=== PATIENT | male | born 1955 | race Caucasian/White ===

== ENCOUNTER → 2019-11-19 08:39 | Outpatient (BNVA) | payer MEDICARE, MEDICAID, SELFPAY | PROVIDERS: Family Provider Nurse Practitioner Family; PCP Nurse Practitioner Family; Visit Provider Podiatrist Foot & Ankle Surgery | DX: M19.072 Primary osteoarthritis, left ankle and foot (principal) | CPT/HCPCS: 73630 ==

== ENCOUNTER → 2019-11-21 08:08 | Outpatient (BNVA) | payer MEDICARE, MEDICAID, SELFPAY | PROVIDERS: Family Provider Nurse Practitioner Family; PCP Nurse Practitioner Family; Visit Provider Nurse Practitioner Family | DX: I10 Essential (primary) hypertension (principal) | CPT/HCPCS: 80048; 80061 ==

== ENCOUNTER → 2020-04-14 14:24 | Outpatient (BNVA) | payer MEDICARE, MEDICAID, SELFPAY | PROVIDERS: Family Provider Nurse Practitioner Family; PCP Nurse Practitioner Family; Visit Provider Podiatrist Foot & Ankle Surgery | DX: G57.62 Lesion of plantar nerve, left lower limb (principal); M21.612 Bunion of left foot | CPT/HCPCS: 73630 ==

== ENCOUNTER → 2020-07-06 15:16 | Outpatient (BNVA) | payer MEDICARE, MEDICAID, SELFPAY | PROVIDERS: Family Provider Nurse Practitioner Family; PCP Nurse Practitioner Family; Visit Provider Nurse Practitioner Family | DX: R34 Anuria and oliguria (principal); R39.11 Hesitancy of micturition | CPT/HCPCS: 81000 ==

== ENCOUNTER → 2020-07-07 08:26 | Outpatient (BNVA) | payer MEDICARE, MEDICAID, SELFPAY | PROVIDERS: Family Provider Nurse Practitioner Family; PCP Nurse Practitioner Family; Visit Provider Nurse Practitioner Family | DX: R39.11 Hesitancy of micturition (principal); E78.5 Hyperlipidemia, unspecified; R35.0 Frequency of micturition | CPT/HCPCS: 80048; G0103 ==

== ENCOUNTER → 2021-04-27 09:18 | Outpatient (BNVA) | payer MEDICARE, MEDICAID, SELFPAY | PROVIDERS: Family Provider Nurse Practitioner Family; PCP Nurse Practitioner Family; Visit Provider Nurse Practitioner Family | DX: I10 Essential (primary) hypertension (principal); M25.50 Pain in unspecified joint | CPT/HCPCS: 80053; 80061; 82306 ==

== ENCOUNTER → 2021-07-18 08:40 | Outpatient (BNVA) | payer MEDICARE, MEDICAID, SELFPAY | PROVIDERS: Family Provider Nurse Practitioner Family; PCP Nurse Practitioner Family; Visit Provider Nurse Practitioner Family | DX: E78.5 Hyperlipidemia, unspecified (principal); I10 Essential (primary) hypertension | CPT/HCPCS: 80061; 80076 ==

== ENCOUNTER → 2021-08-09 09:54 | Outpatient (BNVA) | payer MEDICARE, MEDICAID, SELFPAY | PROVIDERS: Family Provider Nurse Practitioner Family; PCP Nurse Practitioner Family; Visit Provider Nurse Practitioner Family | DX: R35.0 Frequency of micturition (principal); K92.1 Melena | CPT/HCPCS: 81000 ==

== ENCOUNTER → 2021-08-16 09:31 | Outpatient (BNVA) | payer MEDICARE, MEDICAID, SELFPAY | PROVIDERS: Family Provider Nurse Practitioner Family; PCP Nurse Practitioner Family; Visit Provider Nurse Practitioner Family | DX: K92.1 Melena (principal) | CPT/HCPCS: 82272 ==

== ENCOUNTER → 2021-09-06 08:57 | Outpatient (BNVA) | payer MEDICARE, MEDICAID, SELFPAY | PROVIDERS: Family Provider Nurse Practitioner Family; PCP Nurse Practitioner Family; Visit Provider Surgery | DX: Z20.822 Contact with and (suspected) exposure to COVID-19 (principal) | CPT/HCPCS: 87635 ==

== ENCOUNTER 2021-09-09 08:32 | Day surgery (SDC) | payer MEDICARE, MEDICAID, SELFPAY ==
[2021-09-07 16:33] VITALS: BMI 29.8
--- NOTE | 2021-09-09 08:58 | ANES.PREANE2 ---
Pre-Anesthetic Assessment Pre-Anesthetic Assessment: Height/Weight: Height 1.83 m Weight 99.79 kg Preop Diagnosis: diagnostic Proposed Procedure: Operation Date: 09/09/21 09:45 Proposed Procedures p Colonoscopy 28370 K92.1(Not Applicable) - Suresh Mustafa MD Familial anesthetic complications: none Was Beta [place] taken within 24 hours: N/A Was Clonidine taken within 24 hours: N/A Last intake: > 8hrs Social: Social History: No alcohol and No tobacco Exam: Pre-Anes Outpt Exam: alert, oriented x 3, clear to auscultation bilaterally and regular rate & rhythm Airway: Cervical ROM: WNL MP: 4 (patient not opening mouth well (voluntarily)) Dentition: Partials Pulmonary: Pulmonary: Sleep apnea CV/HEM: CV/HEM: HTN Metabolic: Metabolic: Hyperlipidemia Anesthetic Plan: ASA status: 3 Anesthesia: MAC Risk of > 500 ml blood loss (7ml/kg in children): No PFSH Anesthesia PFSH: Medical History Hyperlipidemia LDL goal <100 Hypertension 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 Seizure disorder Surgical History (Updated 08/30/21 @ 11:12 by uSresh Mustafa MD) History of left inguinal hernia repair Hx of brain surgery Family History Other Diabetes Stroke Denies family history of CAD (coronary artery disease) Clotting disorder Dementia Hyperlipidemia Psychiatric illness Chronic kidney disease (CKD) Suicide Anesthesia complication Bleeding disorder Family history of premature coronary artery disease Lung disease Cancer Hypertension Social History Smoking and tobacco status: never smoked Second hand smoke exposure: No Smoking risk assessment/counseling performed?: Yes Alcohol intake: never Desire information about alcohol rehabilitation?: No Counseling given: No Desire information about substance/drug rehabilitation?: No Counseling given: No Data Anesthesia Cardiac Studies: No Data to Display
[2021-09-09 09:33] VITALS: BP 157/101; PULSE 69; RESP 18; TEMP 36.2; O2SAT 97
[2021-09-09] MEDS: sodium chloride 0.9% 1,000 ML 30 ML IV (09:45)
--- NOTE | 2021-09-09 10:41 | W.PM.OPSFHP ---
Same Day Surgery H&P Indication for Procedure/HPI DATE OF PROCEDURE: September 09, 2021 CHIEF COMPLAINT/INDICATIONFOR SURGICAL PROCEDURE: hematochezia/colonoscopy PREOP DIAGNOSIS: diagnostic PLANNED PROCEDRUE: Operation Date: 09/09/21 09:45 Proposed Procedures p Colonoscopy 51902 K92.1(Not Applicable) - Suresh Mustafa MD Medications/Allergies* Home Medications Medication Instructions Recorded Confirmed Type carbamazepine 300 mg 300 mg PO BID 11/19/19 09/09/21 History capsule,extended release [id number] amlodipine 10 mg PO DAILY 09/07/21 09/07/21 History lamotrigine 200 mg PO TID 09/07/21 09/07/21 History levetiracetam 500 mg PO BID 09/07/21 09/07/21 History Allergies/Adverse Reactions Allergy/AdvReac Type Severity Reaction Status Date / Time No Known Allergies Allergy Verified 09/07/21 16:36 Current Medications: Generic Name Dose Route Start Last Admin Trade Name Freq PRN Reason Stop Dose Admin Sodium Chloride 1,000 mls @ 30 mls/hr 09/09/21 08:45 09/09/21 09:45 Sodium Chloride 0.9% IV 09/10/21 08:44 30 mls/hr .Q24H ALEKSANDRA Administration Pertinent History/Comorbid Conditions* Medical History (Updated 05/02/21 @ 13:29 by ALEXANDRA Aranda) Hyperlipidemia LDL goal <100 Hypertension 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 Seizure disorder Surgical History (Updated 08/30/21 @ 11:12 by Suresh Mustafa MD) History of left inguinal hernia repair Hx of brain surgery Family History (Updated 11/19/19 @ 08:45 by Tiana Alcala LPN) Diabetes Stroke Denies family history of CAD (coronary artery disease) Clotting disorder Dementia Hyperlipidemia Psychiatric illness Chronic kidney disease (CKD) Suicide Anesthesia complication Bleeding disorder Family history of premature coronary artery disease Lung disease Cancer Hypertension Social History Smoking and tobacco status: never smoked Second hand smoke exposure: No Smoking risk assessment/counseling performed?: Yes Alcohol intake: never Desire information about alcohol rehabilitation?: No Counseling given: No Desire information about substance/drug rehabilitation?: No Counseling given: No Pertinent Exam Findings alert, oriented x 3 and regular rate & rhythm Recommendations Surgery/Procedure today Coding Level of Care Code Acute Equipment Installation Professional for Chg Melissa
[2021-09-09 10:59] VITALS: BP 119/84; PULSE 71; RESP 16; TEMP 36.3; O2SAT 99
[2021-09-09 11:10] VITALS: BP 122/89; PULSE 67; RESP 16; O2SAT 99
== END 2021-09-09 11:30 | disposition home or self-care (01) ==
PROVIDERS: PCP Nurse Practitioner Family; Visit Provider Surgery
PROC: 0DJD8ZZ Inspection of Lower Intestinal Tract, Via Natural or Artificial Opening Endoscopic (ICD-10-PCS; CPT 45378; principal; 2021-09-09 09:45)
DX: K92.1 Melena (principal); K64.8 Other hemorrhoids; E78.5 Hyperlipidemia, unspecified; I10 Essential (primary) hypertension; G40.909 Epilepsy, unspecified, not intractable, without status epilepticus; G47.30 Sleep apnea, unspecified
CPT/HCPCS: 45378; 96360; 96361; J2704; J7030

== ENCOUNTER 2021-11-03 07:33 | Outpatient (CLI) | payer MEDICARE, MEDICAID, SELFPAY ==
--- NOTE | 2021-11-03 08:00 | MR_ITS ---
WS: [email or web address] MRI CERVICAL SPINE NONCONTRAST TECHNIQUE: Sagittal T1, T2 and STIR imaging. Axial T2, gradient, and fiesta imaging. CLINICAL INFORMATION: M50.30 - Other cervical disc degeneration, unspecified ce... COMPARISON: None. FINDINGS: Straightening of the normal cervical lordosis. Mild to moderate central canal stenosis C3-C6. Cord si gnal is normal. C2-C3: Normal. C3-C4: Slight retrolisthesis. Shallow central protrusion with mild central canal stenosis. Mild left and no significant right foraminal narrowing. Mild facet arthropathy. C4-C5: Shallow central disc protrusion with moderate central canal stenosis. Slight indentation on ce rvical cord. Moderate facet arthropathy. Mild bilateral foraminal narrowing left greater than right. C5-C6: Mild disc osteophyte complex endplate ridging. Moderate bilateral bony foraminal narrowing. Mo derate central canal stenosis. Moderate facet arthropathy. C6-C7: Shallow central disc osteophyte protrusion with slight contact of the left ventral cervical co rd. Moderate central canal stenosis. Severe left and no significant right bony foraminal narrowing. M ild facet arthropathy. C7-T1: Normal Visualized brain stem structures: Incidental ke cisterna magna or arachnoid cyst in the retrocerebe llar posterior fossa. Prevertebral soft tissues: Normal. MR/MR cervical spin wo con* [id number] IMPRESSION: 1. Straightening of the normal cervical lordosis. 2. Mild to moderate central canal stenosis C3-C4 C4-C5 C5-C6 and C6-C7. This i s worse at C4-C5 with moderate central canal stenosis and slight indentation on the cervical cord. Slight indentation on the cervical cord at C3-C4 and left p ericentral C6-C7. 3. Moderate bilateral bony foraminal narrowing C5-C6 and severe left C6-C7. 4. Moderate facet arthropathy C3-C4 C4-C5 and C5-C6.
== END 2021-11-03 07:34 | disposition home or self-care (01) ==
LOC: RADSHAW 07:39
PROVIDERS: PCP Nurse Practitioner Family; Visit Provider Nurse Practitioner Family
DX: M50.30 Other cervical disc degeneration, unspecified cervical region (principal); M48.02 Spinal stenosis, cervical region; M47.812 Spondylosis without myelopathy or radiculopathy, cervical region
CPT/HCPCS: 72141

== ENCOUNTER → 2022-04-27 08:35 | Outpatient (BNVA) | payer MEDICARE, MEDICAID, SELFPAY | PROVIDERS: PCP Nurse Practitioner Family; Visit Provider Nurse Practitioner Family | DX: E78.5 Hyperlipidemia, unspecified (principal); I10 Essential (primary) hypertension; G40.909 Epilepsy, unspecified, not intractable, without status epilepticus | CPT/HCPCS: 80053; 80061 ==

== ENCOUNTER → 2022-08-04 11:19 | Outpatient (BNVA) | payer MEDICARE, MEDICAID, SELFPAY | PROVIDERS: PCP Nurse Practitioner Family; Visit Provider Nurse Practitioner Family | DX: I10 Essential (primary) hypertension (principal); G40.909 Epilepsy, unspecified, not intractable, without status epilepticus; M25.529 Pain in unspecified elbow | CPT/HCPCS: 80053; 80175 ==

== ENCOUNTER → 2022-08-07 13:24 | Outpatient (BNVA) | payer MEDICARE, MEDICAID, SELFPAY | PROVIDERS: PCP Nurse Practitioner Family; Visit Provider Nurse Practitioner Family | DX: E83.52 Hypercalcemia (principal); E55.9 Vitamin D deficiency, unspecified | CPT/HCPCS: 82306; 82310; 82542; 83970 ==

== ENCOUNTER 2022-08-24 07:25 | Outpatient (CLI) | payer MEDICARE, MEDICAID, SELFPAY ==
[2022-08-24] MEDS: iohexol 350 mg/mL 100 mL Btl IV (07:28)
--- NOTE | 2022-08-24 08:30 | CT_ITS ---
WS: [email or web address] CT NECK TECHNIQUE: Contrast-enhanced CT of the neck with coronal and sagittal reformatted images. CLINICAL INFORMATION: E34.9 - Endocrine disorder, unspecified COMPARISON: None. DLP: 333.[address] scans at [facility] use at least one of these dose optimization techniques: automated e xposure control; mA and/or kV adjustment per patient size (includes targeted exams where dose is matc hed to clinical indication); or iterative reconstruction. FINDINGS: Normal posterior nasopharynx. Normal parapharyngeal fat. Parotid glands are normal. Normal submandibu lar glands. No evidence of supraglottic or glottic mass. Normal subglottic airway. Slightly heterogen eous thyroid with a few tiny micronodules in the thyroid. No cervical lymphadenopathy. Lung apices are well aerated. Ectatic ascending thoracic aorta measuring 3.6 cm partially visualized. Moderate spondylitic changes cervical spine. Paranasal sinuses are well aerated. Mastoid air cells are well aerated. Prior postoperative changes L EFT temporal craniotomy with encephalomalacia in the LEFT anterior temporal lobe. Incidental retrocer ebellar arachnoid cyst. CT/CT neck w con* [id number] IMPRESSION: 1. Parotid glands are normal in appearance. Normal submandibular glands. 2. Normal posterior nasopharynx. Normal parapharyngeal fat. 3. No evidence of supraglottic or glottic mass. 4. No cervical lymphadenopathy. 5. Slightly heterogeneous thyroid gland with a few tiny micronodules. 6. Slightly ectatic ascending thoracic aorta measuring 3.6 cm partially visual ized.
== END 2022-08-24 07:26 | disposition home or self-care (01) ==
LOC: RAD 07:25
PROVIDERS: PCP Nurse Practitioner Family; Visit Provider Nurse Practitioner Family
DX: E34.9 Endocrine disorder, unspecified (principal); E04.2 Nontoxic multinodular goiter; I77.810 Thoracic aortic ectasia
CPT/HCPCS: 70491

== ENCOUNTER → 2022-08-28 09:57 | Outpatient (BNVA) | payer MEDICARE, MEDICAID, SELFPAY | PROVIDERS: PCP Nurse Practitioner Family; Visit Provider Nurse Practitioner Family | DX: R93.89 Abnormal findings on diagnostic imaging of other specified body structures (principal); E04.1 Nontoxic single thyroid nodule | CPT/HCPCS: 84439; 84443; 84481 ==

== ENCOUNTER → 2022-10-23 08:36 | Outpatient (BNVA) | payer MEDICARE, MEDICAID, SELFPAY | PROVIDERS: PCP Nurse Practitioner Family; Referring Provider Nurse Practitioner Family; Visit Provider Internal Medicine | DX: E04.1 Nontoxic single thyroid nodule (principal); E21.0 Primary hyperparathyroidism; G31.84 Mild cognitive impairment of uncertain or unknown etiology | CPT/HCPCS: 99204 ==

== ENCOUNTER → 2022-12-06 09:57 | Outpatient (BNVA) | payer MEDICARE, MEDICAID, SELFPAY | PROVIDERS: PCP Nurse Practitioner Family; Visit Provider Internal Medicine | DX: E21.0 Primary hyperparathyroidism (principal); E83.52 Hypercalcemia | CPT/HCPCS: 82306; 82310; 83970 ==

== ENCOUNTER → 2022-12-12 08:21 | Outpatient (BNVA) | payer MEDICARE, MEDICAID, SELFPAY | PROVIDERS: PCP Nurse Practitioner Family; Visit Provider Internal Medicine | DX: E21.0 Primary hyperparathyroidism (principal); E04.1 Nontoxic single thyroid nodule; G31.84 Mild cognitive impairment of uncertain or unknown etiology; M79.10 Myalgia, unspecified site | CPT/HCPCS: 99214 ==

== ENCOUNTER 2022-12-20 07:22 | Outpatient (CLI) | payer MEDICARE, MEDICAID, SELFPAY ==
--- NOTE | 2022-12-20 08:00 | NM_ITS ---
WS: [email or web address] NUCLEAR MEDICINE PARATHYROID SCINTIGRAPHY INDICATION: Endocrine disorder. Hypercalcemia. . TECHNIQUE: Parathyroid scintigraphy with 19.8 mCi technetium 99m sestamibi. Initial and delayed 2 hollie r imaging was obtained with suprasternal and chin markers. AP and oblique imaging. FINDINGS: Normal salivary gland uptake. Normal thyroid gland uptake. Homogeneous thyroid gland uptake with normal washout. No evidence of retained activity to indicate parathyroid adenoma. NM/NM parathyroid [id number] IMPRESSION: No evidence of parathyroid adenoma.
== END 2022-12-20 07:23 | disposition home or self-care (01) ==
LOC: RAD 07:25
PROVIDERS: PCP Nurse Practitioner Family; Visit Provider Internal Medicine
DX: E21.0 Primary hyperparathyroidism (principal)
CPT/HCPCS: 78070; A9500

== ENCOUNTER → 2023-02-15 08:12 | Outpatient (BNVA) | payer MEDICARE, MEDICAID, SELFPAY | PROVIDERS: PCP Nurse Practitioner Family; Visit Provider Internal Medicine | DX: E21.0 Primary hyperparathyroidism (principal); E04.1 Nontoxic single thyroid nodule; G31.84 Mild cognitive impairment of uncertain or unknown etiology; M25.559 Pain in unspecified hip; M79.10 Myalgia, unspecified site | CPT/HCPCS: 36415; 82306; 82310; 83970; 99214 ==

== ENCOUNTER 2023-03-01 07:23 | Outpatient (CLI) | payer MEDICARE, MEDICAID, SELFPAY ==
--- NOTE | 2023-03-01 07:37 | XR_ITS ---
WS: [email or web address] Exam: XR lumbar spine 2-3V* [id number] Date/Time of Exam: 03/01/2023 7:46 AM Reason For Exam: M54.50 - Low back pain, unspecified No acute fracture or dislocation. Degenerative disc thinning noted most marked at L2-3. The L5-S1 dis c is preserved. There is spondylosis. Mild dextroscoliosis. Facet arthropathy at L4-5 and L5-S1. Mild straightening. XR/XR lumbar spine 2-3V* [id number] IMPRESSION: 1. Moderately advanced degenerative changes as detailed above. 2. No acute fracture or malalignment. 3. Mild dextroscoliosis. Straightening.
== END 2023-03-01 07:24 | disposition home or self-care (01) ==
LOC: RAD 07:26
PROVIDERS: PCP Nurse Practitioner Family; Visit Provider Nurse Practitioner Family
DX: M54.50 Low back pain, unspecified (principal)
CPT/HCPCS: 72100

== ENCOUNTER → 2023-03-08 11:49 | Outpatient (BNVA) | payer MEDICARE, MEDICAID, SELFPAY | PROVIDERS: PCP Nurse Practitioner Family; Visit Provider Nurse Practitioner Family | DX: G40.909 Epilepsy, unspecified, not intractable, without status epilepticus (principal); I10 Essential (primary) hypertension; E78.5 Hyperlipidemia, unspecified | CPT/HCPCS: 80053; 80061; 80156; 80175; 80177 ==

== ENCOUNTER → 2023-03-27 15:31 | Outpatient (BNVA) | payer MEDICARE, MEDICAID, SELFPAY | PROVIDERS: PCP Nurse Practitioner Family; Visit Provider Nurse Practitioner Family | DX: R35.0 Frequency of micturition (principal); M51.37 Other intervertebral disc degeneration, lumbosacral region; N39.0 Urinary tract infection, site not specified | CPT/HCPCS: 81000; 87086 ==

== ENCOUNTER → 2023-04-10 16:22 | Outpatient (BNVA) | payer MEDICARE, MEDICAID, SELFPAY | PROVIDERS: PCP Nurse Practitioner Family; Visit Provider Nurse Practitioner Family | DX: N39.0 Urinary tract infection, site not specified (principal) | CPT/HCPCS: 87086 ==

== ENCOUNTER → 2023-04-20 08:10 | Outpatient (BNVA) | payer MEDICARE, MEDICAID, SELFPAY | PROVIDERS: PCP Nurse Practitioner Family; Visit Provider Internal Medicine | DX: E05.90 Thyrotoxicosis, unspecified without thyrotoxic crisis or storm (principal); E21.0 Primary hyperparathyroidism; M81.0 Age-related osteoporosis without current pathological fracture; E04.1 Nontoxic single thyroid nodule; G31.84 Mild cognitive impairment of uncertain or unknown etiology; M79.10 Myalgia, unspecified site | CPT/HCPCS: 99214 ==

== ENCOUNTER 2023-05-02 12:25 | Outpatient (CLI) | payer MEDICARE, SELFPAY ==
--- NOTE | 2023-05-02 13:30 | XR_ITS ---
WS: [email or web address] SCREENING DEXA SCAN proVITAL CLINICAL INFORMATION: osteoporosis COMPARISON: None. FINDINGS: The L1-L4 bone mineral density measures 1.348 g/cm2. This corresponds to a T score score of 1.1 and Z score of 1.1. Left femoral neck bone mineral density measures 0.994 g/cm2. This corresponds to a T score of -0.7 an d Z score of -0.4. Right femoral neck bone mineral density measures 0.970 g/cm2. This corresponds to a T score -0.9of an d Z score of -0.6. Mean femoral neck bone mineral density measures 0.982 g/cm2. This corresponds to a T score of -0.8 an d Z score of -0.5. XR/XR DEXA axial skeleton* [id number] IMPRESSION: Normal bone mineralization. Patient's FRAX calculated 10 year probability for major osteoporotic fracture i s 5.7 % and osteoporotic hip fracture is 0.9%.
== END 2023-05-02 12:26 | disposition home or self-care (01) ==
LOC: RAD 12:26
PROVIDERS: PCP Nurse Practitioner Family; Visit Provider Internal Medicine
DX: Z13.820 Encounter for screening for osteoporosis (principal); M81.0 Age-related osteoporosis without current pathological fracture
CPT/HCPCS: 77080

== ENCOUNTER 2023-05-04 09:45 | Outpatient (CLI) | payer MEDICARE, MEDICAID, SELFPAY ==
--- NOTE | 2023-05-04 10:15 | US_ITS ---
WS: [email or web address] THYROID ULTRASOUND HISTORY: nodule COMPARISON: None available. Right lobe: 2.3 cm x 2.7 cm x 4.5 cm (w x ap x l). Volume: 14.8 cm3. Mildly enlarged thyroid. Thyroid gland is heterogeneous and enlarged extending subclavicular. There a re small nodules which some are cystic and probably due to colloid cyst. No dominant mass and no incr eased vascularity. Left lobe: 1.9 cm x 2.1 cm x 4.5 cm (w x ap x l). Volume: 9.3 cm3. Mildly enlarged thyroid. Small scattered cysts which are probably colloid cysts. No dominant nodule. Isthmus: 0.5 cm. US/US thyroid [id number] IMPRESSION: 1. Mildly enlarged gland, RIGHT greater than LEFT. 2. Small scattered subcentimeter nodules. Some of these are colloid cysts. The re is no dominant solid mass.
== END 2023-05-04 09:46 | disposition home or self-care (01) ==
PROVIDERS: PCP Nurse Practitioner Family; Visit Provider Internal Medicine
DX: E04.1 Nontoxic single thyroid nodule (principal); E05.90 Thyrotoxicosis, unspecified without thyrotoxic crisis or storm
CPT/HCPCS: 76536; 99214

== ENCOUNTER → 2023-10-22 08:30 | Outpatient (BNVA) | payer MEDICARE, MEDICAID, SELFPAY | PROVIDERS: PCP Nurse Practitioner Family; Visit Provider Internal Medicine | DX: E04.1 Nontoxic single thyroid nodule (principal); M81.0 Age-related osteoporosis without current pathological fracture; E21.0 Primary hyperparathyroidism; M25.40 Effusion, unspecified joint; G31.84 Mild cognitive impairment of uncertain or unknown etiology; M79.10 Myalgia, unspecified site | CPT/HCPCS: 36415; 80053; 82306; 82310; 83970; 99214 ==

== ENCOUNTER → 2023-11-21 11:41 | Outpatient (BNVA) | payer MEDICARE, MEDICAID, SELFPAY | PROVIDERS: PCP Nurse Practitioner Family; Visit Provider Nurse Practitioner Family | DX: G40.909 Epilepsy, unspecified, not intractable, without status epilepticus (principal) | CPT/HCPCS: 80156; 80175 ==

== ENCOUNTER → 2024-04-22 14:20 | Outpatient (BNVA) | payer MEDICARE, MEDICAID, SELFPAY | PROVIDERS: PCP Nurse Practitioner Family; Visit Provider Nurse Practitioner Family | DX: E04.1 Nontoxic single thyroid nodule (principal); Z79.899 Other long term (current) drug therapy; I10 Essential (primary) hypertension; G40.909 Epilepsy, unspecified, not intractable, without status epilepticus | CPT/HCPCS: 80061; 80175; 84443 ==

== ENCOUNTER 2024-06-23 07:38 | Outpatient (CLI) | payer MEDICARE, MEDICAID, SELFPAY ==
--- NOTE | 2024-06-23 08:00 | MR_ITS ---
WS: [email or web address] MRI LEFT SHOULDER NONCONTRAST TECHNIQUE: Sagittal T2, coronal T1, T2 and proton density imaging. Axial gradient PDE imaging. CLINICAL INFORMATION: M25.512 - Pain in left shoulder COMPARISON: None. FINDINGS: Advanced arthritis of the AC joint with subacromial spurring. Mild narrowing of the subacromial space . Subacromial subdeltoid fluid. High-grade tear of the distal supraspinatus with fluid and edema in t he supraspinatus muscle belly and tendon. Thinning of the residual supraspinatus tendon. No significa nt tendon retraction. Infraspinatus appears intact. Teres minor appears intact. Intrasubstance high-grade complete split tear involving the subscapularis tendon with slight medial s ubluxation of the biceps tendon from the bicipital groove. Partial tear and/or tendinopathy of the in tra-articular biceps tendon. Biceps labral anchor appears intact. Small joint effusion. Moderate dege nerative narrowing of the glenohumeral articulation. Degenerative cystic changes involving the greate r tuberosity. MR/MR shoulder LT wo con* [id number] IMPRESSION: 1. High-grade tear involving the distal supraspinatus with fluid and edema. No significant tendon retraction. 2. High-grade complete split tear involving the subscapularis tendon. Tear of the transverse humeral ligament with medial subluxation of the biceps tendon fr om the bicipital groove. 3. Infraspinatus and teres minor appear intact. 4. Advanced arthritis AC joint with subacromial subdeltoid fluid. Subacromial spurring. 5. Intrasubstance tear and/or tendinopathy involving the intra-articular bicep s tendon which appears intact.
== END 2024-06-23 07:39 | disposition home or self-care (01) ==
LOC: RAD 07:38
PROVIDERS: PCP Nurse Practitioner Family; Visit Provider Nurse Practitioner Family
DX: S46.012A Strain of muscle(s) and tendon(s) of the rotator cuff of left shoulder, initial encounter (principal); M19.012 Primary osteoarthritis, left shoulder
CPT/HCPCS: 73221

== ENCOUNTER → 2024-08-12 09:18 | Outpatient (BNVA) | payer MEDICARE, MEDICAID, SELFPAY | PROVIDERS: PCP Nurse Practitioner Family; Visit Provider Student in an Organized Health Care Education/Training Program | DX: M25.512 Pain in left shoulder (principal); G89.29 Other chronic pain; M75.102 Unspecified rotator cuff tear or rupture of left shoulder, not specified as traumatic | CPT/HCPCS: 20610; 73030; 99204; J3301 ==